=== PATIENT | female | born 1995 | race Two or more races ===

== ENCOUNTER 2022-06-26 19:55 | Inpatient (IN) | payer OTHER ==
[~2022-06-26] VITALS: Ht 165.1 cm; Wt 56.7 kg
[2022-06-26] MEDS ORDERED: REGLAN5 MG/5 ML PO (20:16)
[2022-06-26] MEDS ORDERED: CARAFATE1 GM (20:16)
[2022-06-26] MEDS ORDERED: ACID REDUCER20 M1 (20:16)
[2022-06-26] MEDS ORDERED: AMITRIPTYLINE H25 MG (20:17)
[2022-06-26] MEDS ORDERED: KLOR-CON 1010 MEQ (20:17)
--- NOTE | 2022-06-26 20:17 | NUR ---
PTE ALERTA Y ORIENTADA POR LEFTY ESFERAS CON BUEN PATRON RESPIRATORIO, VIENE EN JANY POR AMBULANCIA. FAMILIAR REFIERE QUE PTE GOODWIN TENIDO 10 VOMITOS, Y DOLOR ABDOMINAL DESDE EL JETHRO DE HOY.
--- NOTE | 2022-06-26 20:20 | NUR ---
SE PRESENTA A MEDICO DE TURNO, SE ADMINISTRA .9NSS 500ML FULLDRIP GIOVANNI ORDEN MEDICA.
--- NOTE | 2022-06-26 21:04 | NUR ---
SE LE ORIENTA A PTE SOBRE TRATAMIENTO E INSTRUCCIONES A SEGUIR, MILLY REFIERE ENTENDER. SE LE COLECTA MUESTRAS Y SE ADMINISTRA MEDICAMENTO GIOVANNI ORDEN MEDICA. TIENE CANALIZACION EN BRAZO SINAI DE AMBULANCIA. SE NOTIFICA A TR [place] SOBRE ABG'S
--- NOTE | 2022-06-26 21:47 | NUR ---
SE NOTIFICA A MEDICO DE TURNO SOBRE B/P Y DXT.
--- NOTE | 2022-06-27 02:27 | NUR ---
SE COLOCA HINKLE A PTE UTILIZANDO MEDIDAS ASEPTICAS. SE ALHAJI MUESTRA DE UA Y UC A PTE.
--- NOTE | 2022-06-27 04:37 | NUR ---
SE EDUCA A PACIENTE Y FAMILIAR ACERCA DE TRATAMIENTO ORDENADO Y AMBAS REFIEREN ENTENDER. SE ADMINISTRA MEDICAMENTOS GIOVANNI ORDEN MEDICA Y MEDIANTE MEDIDAS ASEPTICAS
--- NOTE | 2022-06-27 07:28 | NUR ---
SE RECIBE PTE EN EL AREA DE OBSERVACION Y BAJO TRATAMIENTO, EN CAMA CON BARRANDAS ELEVADA Y TIMBRE ACCESIBLE PTE ALERTA Y ORIENTADO POR 3 PTE NO PRESENTA DOLOR AL MOMENTO, PTE SE MANTIENE EN OBSERVACION Y BAJO TRATAMIENTO, PTE CON MANAN BECKRE.
== END 2022-07-04 18:41 | disposition home or self-care (01) | DRG 638 ==
LOC: ER 19:55 → ICU-2 06-27 16:52 → MEDI 06-28 16:35
PROVIDERS: ADMIT Internal Medicine; ATTEND Internal Medicine
PROC: BW21ZZZ Computerized Tomography (CT Scan) of Abdomen and Pelvis (ICD-10-PCS; 2022-06-27)
PROC: BB24ZZZ Computerized Tomography (CT Scan) of Bilateral Lungs (ICD-10-PCS; 2022-06-27)
PROC: BT4JZZZ Ultrasonography of Kidneys and Bladder (ICD-10-PCS; 2022-06-27)
PROC: 02HV33Z Insertion of Infusion Device into Superior Vena Cava, Percutaneous Approach (ICD-10-PCS; 2022-06-28)
PROC: 4A12X4Z Monitoring of Cardiac Electrical Activity, External Approach (ICD-10-PCS; 2022-06-28)
PROC: CF2YYZZ Tomographic (Tomo) Nuclear Medicine Imaging of Hepatobiliary System and Pancreas using Other Radionuclide (ICD-10-PCS; principal; 2022-06-30)
DX: E10.10 Type 1 diabetes mellitus with ketoacidosis without coma (principal); N39.0 Urinary tract infection, site not specified; B96.89 Other specified bacterial agents as the cause of diseases classified elsewhere; K82.8 Other specified diseases of gallbladder; E87.6 Hypokalemia; I95.89 Other hypotension; E10.43 Type 1 diabetes mellitus with diabetic autonomic (poly)neuropathy; K31.84 Gastroparesis; E83.39 Other disorders of phosphorus metabolism; Z20.822 Contact with and (suspected) exposure to COVID-19